=== PATIENT | female | born 1960 | race Caucasian/White ===

== ENCOUNTER 2017-01-23 00:11 | Day surgery (SDC) | payer OTHER ==
[~2017-01-23] VITALS: Ht 172.7 cm; Wt 96.0 kg
[~2017-01-23 00:11] MED LIST: GABA-500 PO; OMEP20TA86 PO; SECU150S2 SQ; TRAM50TA2 PO
[2017-01-23] MEDS ORDERED: Propofol 10 mg/mL 20 mL Inj ONE (00:12)
[2017-01-23] MEDS ORDERED: Lactated Ringer's 1,000 ML IV ONE (06:00)
[2017-01-23 10:27] VITALS: BP 133/71; PULSE 91; RESP 14; O2SAT 100
[2017-01-23] MEDS ORDERED: ESTR50GE TD (10:29)
[2017-01-23] MEDS ORDERED: Lactated Ringer's 1,000 ML IV SCH (11:23)
--- NOTE | 2017-01-23 11:23 | PCM.HPANE ---
Patient Data Date of Service: Jan 23, 2017 Surgeon Admitting Provider: Attending Provider:Edgar Barron MD Primary Care Physician:Other,Physician Other Provider:Lourdes Larry Anesthesia Reason for Visit Dysphagia Ht/WT & BMI Height (Feet): 5 Height (Inches): 8 Weight (Kilograms): 96 Body Mass Index 32.00 Allergies Coded Allergies: No Known Drug Allergies (Verified Allergy, Unknown, 01/22/17) Past Anesthesia History Anesthesia History: Denies:: Abnormal Airway, Anesthesia Reactions, Difficult Intubation, Fam Anesthesia Reaction, Fam Malignant Hypertherm, Malignant Hyperthermia Diabetes History Hx Diabetes?: No MRSA MRSA: No Medications Home Meds Incl Beta Shyam: No Reported Medications Estradiol (Estrogel)50 Gm Gel..pmp50 Gm TD 01/23/17 Tramadol 50 Mg Pftrje41 Mg PO Q4H PRN For Pain Ref 0 01/22/17 Omeprazole 20 Mg Tablet.dr20 Mg PO DAILY 01/22/17 Discontinued Reported Medications Gabapentin 100 Mg [id number] Mg PO DAILY 30 Days Ref 0 01/22/17 Secukinumab (Cosentyx (2 Syringes))150 Mg/Ml Syringe0.25 Mg SQ 01/22/17 History History of ENT Problems?: No HEENT History: Positive for:: Dysphagia Denies:: Abnormal Airway Difficult Intubation Hearing Problem Denture Type: None Teeth Condition: Within Normal Limits Hx of Heart Problems?: No Cardiovascular History: Denies:: AICD Pacemaker Valvular Heart Disease Hx of Respiratory Problem?: No Respiratory History: Denies:: Asthma COPD Chest Surgery Cough Dyspnea Emphysema Hemoptysis Oxygen Administration Pneumonia Pulmonary Embolism Tuberculosis Use of C-PAP Machine Use of Inhalers / NEBS Hx Neurologic Problems?: No Neurological History: Denies:: CVA Hx of GI Problems?: Yes Hx of Problems?: No Female Hx: Denies:: Currently Hx Musculoskeletal Problems?: Yes Musculoskeletal History: Positive for:: Fibromyalgia Denies:: Joint Replacement Psycho Social History: Positive for:: Anxiety Denies:: Hx Depression Hx Surgeries?: Yes (RECTOCILE, CYSTOCILE) Hx Any Other Health Problems?: Yes Hx Diabetes: No Hx Alcohol Use: No Stop/Bang Treated for Sleep Apnea?: Yes Do You Have a CPAP Machine?: Yes JONO Category 2: Yes Risk Assessment Category Category 1A: Patient has history of documented sleep apnea, and HAS NOT received any narcotic, sedative or anesthesia administration during this stay. Category 1B: Patient has history of documented sleep apnea, and HAS received any narcotic , sedative or anesthesia administration during this stay Category 2: Patient has SUSPECTED Obstructive Sleep Apnea, and HAS received any narcotic , sedative or anesthesia administration during this stay. Category 3: Patient has SUSPECTED Obstructive Sleep Apnea and HAS NOT received narcotic, sedative or anesthesia administration during this stay. Category 4: Outpatient in Procedural Areas with known sleep apnea or who screen positive for High Risk via the STOP/BANG questionnaire. Exam Exam Vital Signs Vital Signs Date Time Temp Pulse Resp B/P Pulse Ox O2 Delivery O2 Flow Rate FiO2 01/23/17 10:27 37.2 91 14 133/71 100 Room Air General Appearance: Alert, Oriented X3, Cooperative, No Acute Distress HEENT/AIRWAY: MP 1 Lungs: Normal Air Movement Heart: Exam Unremarkable Plan Impression Patient chart reviewed, patient interviewed and anesthestic plan with risks, benefits, and alternatives discussed, and informed consent obtained. NPO per Anesth. Guidelines: Yes ASA Physical Status: ASA2 Mod Systemic Disease Anesthetic Plan: MAC Bene/Risks/Altern/Consents: Yes HP Complete Prior to Induction: Yes Master Lazcano MD Jan 23, 2017 11:03
[2017-01-23] MEDS ORDERED: MetoCLOpramide 5 mg/mL 2 mL Inj IVPUSH PRN (11:25)
[2017-01-23] MEDS ORDERED: Ondansetron 2 mg/mL 2 mL Inj IVPUSH PRN (11:25)
[2017-01-23 11:39] VITALS: BP 135/80; PULSE 85; RESP 16; O2SAT 99
[2017-01-23 11:48] VITALS: BP 139/76; PULSE 81; RESP 14; O2SAT 99
--- NOTE | 2017-01-23 11:50 | PCM.ANEP1 ---
Post Anesthesia PACU Phase 1 Assessment Date of Service: Jan 23, 2017 Vital Signs Vital Signs Date Time Temp Pulse Resp B/P Pulse Ox O2 Delivery O2 Flow Rate FiO2 01/23/17 11:48 81 14 139/76 99 Room Air 01/23/17 11:39 36.5 85 16 135/80 99 Room Air 01/23/17 10:27 37.2 91 14 133/71 100 Room Air Level of Alertness: Awake, talking OLSON's with Equal Strength: Yes Pain: No Nausea or Vomiting: No CV Function & Hydration Stable: Yes Airway Device: Oxygen Delivery: Room Air Lungs: Normal Air Movement Dermatome Level: Full Sensation PACU Phase 2 Assessment Complications: No Follow up Care: N/A Patient Instructions Provided: N/A Master Lazcano MD Jan 23, 2017 11:50
[2017-01-23 11:58] VITALS: BP 136/91; PULSE 86; RESP 16; O2SAT 99
--- NOTE | 2017-01-23 13:34 | ENDO ---
[address] [address] ENDOSCOPY PROCEDURE PATIENT: JESSENIA BUITRAGO : 1960 MR#: [id number] ADMIT: 01/23/2017 JOB ID: [id number] DATE OF SERVICE: 01/23/2017 PROCEDURE: Esophagogastroduodenoscopy, biopsy. PREOPERATIVE DIAGNOSIS: Dysphagia. POSTOPERATIVE DIAGNOSIS: Normal upper endoscopy, status post biopsy. ANESTHESIA: Monitored anesthesia care. COMPLICATIONS: None. BLOOD LOSS: Minimal. DESCRIPTION OF PROCEDURE: After risks and benefits explained to the patient, informed consent was obtained. After anesthesia administered, the upper endoscope was inserted into the mouth, intubated the esophagus, stomach, second portion of duodenum. Mucosa carefully examined. After procedure was done, the scope withdrawn and procedure terminated. FINDINGS: Upon inspection of esophagus, esophagus was normal without masses, ulcers, or lesions. Z-line located at 40 cm from the incisors. Upon entering stomach, the stomach also appeared normal without masses, ulcers, or lesions. Retroflexion was normal. Duodenal bulb, first and second portion were normal. Biopsies taken of the antrum, body, and mid and distal esophagus. IMPRESSION: Normal upper endoscopy, status post biopsy. RECOMMENDATION: Await pathology results. Follow up in GI clinic as needed.
--- NOTE | 2017-01-24 14:53 | PATH ---
SURGICAL PATHOLOGY Attending Physician:Edgar Barron MD CASE STATUS: Signed Out PATIENT NAME: JESSENIA BUITRAGO PID: [id number] : 1960 DATE COLLECTED:01/23/2017 20:23 SPECIMEN: 1: Gastric, Biopsy 2: Gastric, Biopsy 3: Esophagus, Biopsy 4: Esophagus, Biopsy CLINICAL HISTORY: RULE OUT H.PYLORI 1). ANTRUM BIOPSY 2). GASTRIC BODY BIOPSY 3). DISTAL ESOPHAGUS BIOPSY 4). MID ESOPHAGUS BIOPSY FINAL DIAGNOSIS: 1.ANTRUM BIOPSY: MILD CHRONIC GASTRITIS INVOLVING ANTRAL MUCOSA. Negative for evidence of Helicobacter on H&E stain. Negative for intestinal metaplasia. Negative for dysplasia and malignancy. 2.GASTRIC BODY BIOPSY: MILD CHRONIC GASTRITIS INVOLVING FUNDIC MUCOSA. Negative for evidence of Helicobacter on H&E stain. Negative for intestinal metaplasia. Negative for dysplasia and malignancy. 3.DISTAL ESOPHAGUS BIOPSY: SQUAMOUS MUCOSA AND GASTRIC OXYNTIC-TYPE MUCOSA NEGATIVE FOR SPECIALIZED METAPLASIA OF SAN' S-TYPE ESOPHAGUS. Negative for dysplasia and malignancy. Rare eosinophils present within squamous epithelium consistent with chronic reflux. 4.MID ESOPHAGUS BIOPSY: SQUAMOUS EPITHELIUM NEGATIVE FOR ATYPIA. Negative for intraepithelial eosinophils. [id number] GROSS DESCRIPTION: The specimen is received in four formalin filled containers labeled with the patient's name. 1). The specimen is sublabeled "antrum" and consists of 2 portions of tissue which aggregate to 0.4 x 0.3 x 0.2 CM. The specimen is entirely submitted in cassette 1A. 2). The specimen is sublabeled "gastric body" and consists of 2 portions of tissue which aggregate to 0.3 x 0.3 x 0.2 CM. The specimen is entirely submitted in cassette 2A. 3). The specimen is sublabeled "distal esophagus" and consists of 3 tiny portions of tissue which aggregate to 0.3 x 0.3 x 0.2 CM. The specimen is entirely submitted in cassette 3A. 4). The specimen is sublabeled "mid esophagus" and consists of 2 portions of tissue which aggregate to 0.4 x 0.3 x 0.2 CM. The specimen is entirely submitted in cassette 4A. 01/23/2017 [facility] MICRO DESCRIPTION: See diagnosis. ICD-9 CODES: CPT CODES: 1: 55638 2: 50362 3: 17839 4: 78745 Electronically Signed Out Ajit Baker MD [facility] [address], [place] [address] Technical component performed at [facility], [address], [place], [address]
== END 2017-01-23 23:59 | disposition home or self-care (01) ==
LOC: END 00:11
PROVIDERS: ATTEND Internal Medicine Gastroenterology
DX: K29.50 Unspecified chronic gastritis without bleeding (principal); K21.9 Gastro-esophageal reflux disease without esophagitis; G47.33 Obstructive sleep apnea (adult) (pediatric); M79.7 Fibromyalgia
CPT/HCPCS: 43239; J2250; J7120